=== PATIENT | female | born 1950 | race Caucasian/White ===

== ENCOUNTER 2025-08-09 14:40 | Emergency (ER) | payer OTHER, MEDICAID, SELFPAY ==
[2025-08-09 14:50] VITALS: PULSE 120; BMI 28.3
--- NOTE | 2025-08-09 15:05 | XR_ITS ---
Examination: CT maxillofacial, without intravenous contrast. 2-D sagittal reconstructions. 3-D reconstructions. Date and time of exam: August 09, 2025, 1603 hours INDICATIONS: Patient fell today with injury to the face, facial pain CTDI: vol (mGy): 19.9 DLP: (mGycm): 390 Technique: Multiple axial images of maxillofacial region, 3.0 mm slice thickness. 2-D sagittal and coronal reconstructions. 3-D reconstructions. Low dose protocols were performed. One or more of the following dose reduction techniques were used; automated exposure control, adjustment of the mA and/or KV according to patient size, use of iterative reconstruction technique. Findings: Frontal bones frontal sinuses intact Orbital rims intact Fractures anterior and lateral margins left maxillary antrum with depression of fracture fragments and blood in the left maxillary antrum Maxilla appears intact No acute nasal bone fractures Mandible intact IMPRESSION: Comminuted fractures with depressions anterior and lateral gates left maxillary antrum.
--- NOTE | 2025-08-09 15:05 | XR_ITS ---
Examination: CT cervical spine without contrast 2-D sagittal reconstructions 2-D coronal reconstructions 3-D reconstructions. Exam date and time: August 09, 2025, 1603 hours, comparison January 26, 2022 INDICATIONS: Patient fell today with injury to the neck, neck pain CTDI:vol (mGy) 12.2 DLP: (mGycm) 236 Technique: Multiple 2 mm axial sections of the cervical spine have been obtained. The coronal and sagittal reconstructions have been obtained. 3-D reconstructions have been obtained. Low dose protocols were performed. One or more of the following dose reduction techniques were used; automated exposure control, adjustment of the mA and/or KV according to patient size, use of iterative reconstruction technique. Findings: Axial sections demonstrate intact base of the skull. Again noted multiple focal areas of probable osteopenia in the cervical vertebral bodies without significant change C1 exhibit satisfactory relationship to the odontoid. No acute cervical vertebral body fracture seen. Alignment posterior spinous processes satisfactory. Impression: No acute cervical fracture.
--- NOTE | 2025-08-09 15:05 | XR_ITS ---
Examination: CT brain head without contrast. 2-D sagittal coronal reconstructions Date and time of exam: August 09, 2025, 1603 hours INDICATION: Patient fell today with injury to the head, head pain COMPARISON: January 25, 2022 CTDI: vol (mGy): 45.7 DLP: (mGycm): 897 Technique: Multiple CT axial sections of the brain have been obtained, 5 mm slice thickness. Contrast has not been administered. 2-D sagittal, coronal reconstructions have been obtained Low dose protocols were performed. One or more of the following dose reduction techniques were used; automated exposure control, adjustment of the mA and/or KV according to patient size, use of iterative reconstruction technique. Findings: No significant ventricular enlargement. Old left basal ganglia infarct Intra-axial or extra-axial hemorrhage density is not seen. No mass effect or midline shift Basal cisterns are not remarkable. Fourth ventricle is midline. Cranial vault intact. Soft tissue swelling anterior to the left optic globe Impression: Negative for acute hemorrhage, mass effect or midline shift Please see the CT maxillofacial study today
--- NOTE | 2025-08-09 15:07 | PD.EDFALL ---
ED Fall Injury RME/HPI General Chief Complaint: Fall Stated Complaint: FALL Time Seen by Provider: 08/09/25 14:59 Arrival date/time: 08/09/25 14:40 74-year-old female patient with significant history of hypertension, taking 81 mg of aspirin daily, came in for evaluation regarding facial injury. Patient sustained a trip and fall, mechanical fall hitting her left side of the face on the curb resulting into nosebleeding, facial swelling on the left. No abrasion noted. Patient denies any headache no neck pain patient was able to ambulate after the fall. No LOC no nausea no vomiting. Incident happened few minutes prior to ER visit. Related Data Previous Rx's ?Medication ?Instructions ?Recorded acetaminophen 325 mg tablet 650 mg (2 x 325 mg) PO Q6HR PRN 01/30/22 (Tylenol) Pain Scale 4-10(Mod-Sev #0 tabs amlodipine 5 mg tablet 10 mg (2 x 5 mg) PO QDAY #0 tabs 01/30/22 atenolol 25 mg tablet 25 mg PO QAM #0 tabs 01/30/22 atorvastatin 20 mg tablet 80 mg (4 x 20 mg) PO HS #0 tabs 01/30/22 clopidogrel 75 mg tablet 75 mg PO QDAY #0 tabs 01/30/22 lisinopril 20 mg tablet 40 mg (2 x 20 mg) PO QDAY #0 tabs 01/30/22 naproxen 250 mg tablet 250 mg PO Q8HR PRN Pain #0 tabs 01/30/22 acetaminophen 300 mg-codeine 30 mg 1 tab PO Q8H PRN pain #20 tabs 08/09/25 tablet amoxicillin 875 mg-potassium 1 tab PO BID #14 tabs 08/09/25 clavulanate 125 mg tablet Allergies Allergy/AdvReac Type Severity Reaction Status Date / Time enalaprilat (From Vasotec) Allergy Intermediate Vomiting Verified 08/09/25 14:49 venlafaxine (From Effexor) Allergy Intermediate Vomiting Verified 08/09/25 14:49 erythromycin base Allergy Vomiting Verified 08/09/25 14:49 Review of Systems Review of Systems Narrative Review of Systems: Review of system reviewed and within normal limits except mentioned in HPI ED Exam Narrative Physical exam: VITAL SIGNS: Reviewed. GENERAL APPEARANCE: Alert and interactive, follows commands, no acute distress, HEAD AND FACE: Swelling left side of the face, bruising no deformity to the nose periorbital hematoma noted no hyphema noted ENT: PERRL, pink conjunctivitis, eyelid no trauma, Mucous membrane moist. NECK: Supple, nontender, no nuchal rigidity. CHEST: No tenderness, no crepitus, no paradoxical movement, no retractions. LUNGS: Clear, well ventilated, symmetric, no rales, no wheezing, no ronchi, no stridor, good breath sounds bilaterally. HEART: Regular rate, regular rhythm, no murmur, no gallops. ABDOMEN: Soft, positive bowel sounds, nondistended, no guarding, nontender, no rebound, no masses, RECTAL: Deferred. GENITAL: Deferred. NEUROLOGICAL: Gross motor function intact sensory function intact, Appropriate for age. MUSCULOSKELETAL: low back nontender, full range of motion. EXTREMITIES: Nontender, full range of motion. SKIN: Color pink, dry, no rash, no lacerations, no abrasions, no contusions. LYMPHATICS: Deferred. Course Quality Measures none Orders Category Date Time Status Referral - Timber Estimator Stat Cons 08/09/25 17:[address] cervical spine wo con Stat Exams 08/09/25 15:[address] facial bones wo con Stat Exams 08/09/25 15:[address] head/brain wo con Stat Exams 08/09/25 15:05 Completed CBC [CBC] Stat Lab 08/09/25 15:42 Completed CMP [Comprehensive Metabolic Panel] Stat Lab 08/09/25 15:42 Completed PTT [Partial Thromboplastin Time] Stat Lab 08/09/25 15:42 Completed UA, C/S IF [Urinalysis, C/S if Indicated] Stat Lab 08/09/25 15:31 Completed Urine Culture Stat Lab 08/09/25 15:31 Received Acetaminophen Tab [Tylenol ES Tab] Med 08/09/25 15:05 Discontinued 1,000 mg PO X1 ONE Morphine* Inj Med 08/09/25 18:06 Discontinued 4 mg IVP X1 ONE Ondansetron Inj [Zofran Inj] Med 08/09/25 18:06 Discontinued 4 mg IVP X1 ONE Oxymetazoline [place] 0.05% [Afrin Nasal [place]] Med 08/09/25 17:42 Discontinued See Dose Instructions NASAL X1 ONE TET,DIP/PERT AC (Adult)-Tdap [Boostrix Adult (Tdap) Med 08/09/25 15:05 Discontinued Vacc] 0.5 ml IMI .ONCE ONE cephALEXin [Keflex] Med 08/09/25 16:31 Discontinued 500 mg PO X1 ONE cloNIDine HCL [Catapres] Med 08/09/25 17:12 Discontinued 0.2 mg PO X1 ONE Vital Signs Vital signs: Vital Signs Temperature 99.2 F 08/09/25 15:09 Pulse Rate 117 H 08/09/25 15:09 Respiratory Rate 18 08/09/25 15:09 Blood Pressure 144/117 H 08/09/25 15:09 Pulse Oximetry (%) 98 08/09/25 15:09 Oxygen Delivery Method Room Air 08/09/25 15:09 Fall MDM Narrative MDM Narrative:: 74-year-old female patient with significant history of hypertension, taking 81 mg of aspirin daily, came in for evaluation regarding facial injury. Patient sustained a trip and fall, mechanical fall hitting her left side of the face on the curb resulting into nosebleeding, facial swelling on the left. No abrasion noted. Patient denies any headache no neck pain patient was able to ambulate after the fall. No LOC no nausea no vomiting. Incident happened few minutes prior to ER visit. CT scan of the head came back unremarkable. CT scan of the neck came back unremarkable. CT scan of the face showed Comminuted fractures with depressions anterior and lateral gates left maxillary antrum. Patient was referred to [facility] for outpatient follow-up. Patient got accepted for outpatient follow-up in [facility] in [place]. Patient was given the address of the facility Patient stable for charged home Patient data External records reviewed:: None Clinical information provided by:: patient Social determinants that could affect healthcare access:: none Patient has the following chronic illnesses:: Hypertension How is presenting disease/condition affected by chronic disease/condition?: uneffected by Evaluation data The following diagnostics were reviewed and interpreted by me:: lab results and radiology exam(s) Lab and/or radiology exams considered but not ordered:: None Interpretation Summary: none Medications / Prescriptions Medications or Prescriptions considered but not ordered:: none Medication administrations:: Medication Administration History Discontinued Medications Acetaminophen (Acetaminophen 500 Mg Tablet) 1,000 mg PO X1 ONE Stop: 08/09/25 15:06 Last Admin: 08/09/25 16:19 Dose: 1,000 mg Documented By: JOSE ANTONIO Cephalexin HCl (Cephalexin 250 Mg Capsule) 500 mg PO X1 ONE Stop: 08/09/25 16:32 Last Admin: 08/09/25 17:19 Dose: 500 mg Documented By: MARIANNE Clonidine (Clonidine Hcl 0.1 Mg Tablet) 0.2 mg PO X1 ONE Stop: 08/09/25 17:13 Last Admin: 08/09/25 17:19 Dose: 0.2 mg Documented By: MARIANNE Diphtheria/Tetanus/Acell Pertussis (Diphth,Pertuss(Acell),Tet Vac 0.5 Ml Syr- Adult) 0.5 ml IMi .ONCE ONE Stop: 08/09/25 15:06 Last Admin: 08/09/25 17:19 Dose: 0.5 ml Documented By: MARIANNE Morphine Sulfate (Morphine Sulf Inj 4 Mg/Ml Vial) 4 mg IVP X1 ONE Stop: 08/09/25 18:07 Last Admin: 08/09/25 18:19 Dose: 4 mg Documented By: JOSE ANTONIO Ondansetron HCl (Ondansetron Inj 2 Mg/Ml Inj 2 Ml) 4 mg IVP X1 ONE; Protocol Stop: 08/09/25 18:07 Last Admin: 08/09/25 18:20 Dose: 4 mg Documented By: JOSE ANTONIO Oxymetazoline HCl (Oxymetazoline [place] 0.05% 15 Ml Btl) 0 spray NASAL X1 ONE Stop: 08/09/25 17:43 Last Admin: 08/09/25 18:18 Dose: 2 spray Documented By: JOSE ANTONIO Comments: unable to scan barcode see above Consultations Consultation(s) initiated? (list below): Yes Diagnosis Fall Differential Diagnosis: syncope and other (Facial contusion, fall, maxillary bone fracture) Most likely diagnosis given after review of the tests above:: Facial hematoma, fall, maxillary bone fracture Admission Indicated Admission indicated?: not indicated Admission Request Was there a request for admission?: No Disposition Plan Disposition Plan: Discharge Discharge Attestation Discharge Attestation: The patient was given an opportunity to ask questions and understood the discharge instructions. Discharge instructions specifically effects, indications for sooner follow up or return to the emergency department, and the expected course of current diagnosis. Patient condition: Stable Discharge Plan Plan Patient Disposition: HOME (Self Care) Discharge Disposition comment: Stable Prescriptions/Referrals Prescriptions/Med Rec: New amoxicillin-pot clavulanate 875-125 mg tablet 1 tab PO BID Qty: 14 0RF acetaminophen-codeine 300-30 mg tablet 1 tab PO Q8H PRN (Reason: pain) Qty: 20 0RF No Action acetaminophen [Tylenol] 325 mg Tablet 650 mg PO Q6HR PRN (Reason: Pain Scale 4-10(Mod-Sev) Qty: 0 0RF atorvastatin 20 mg Tablet 80 mg PO HS Qty: 0 0RF lisinopril 20 mg Tablet 40 mg PO QDAY Qty: 0 0RF atenolol 25 mg Tablet 25 mg PO QAM Qty: 0 0RF naproxen 250 mg Tablet 250 mg PO Q8HR PRN (Reason: Pain) Qty: 0 0RF clopidogrel 75 mg Tablet 75 mg PO QDAY Qty: 0 0RF amlodipine 5 mg Tablet 10 mg PO QDAY Qty: 0 0RF Referrals: Ajay Acharya MD [Primary Care Provider, Family Practice] - In 1 week Problem List Clinical Impression: Fall, Facial hematoma, Closed fracture of maxillary bone, UTI (urinary tract infection) Patient/Caregiver Discharge Instructions Discharge Activity: activity as tolerated Education Materials: Bruises (Contusions) Additional Instructions: Thank you for the opportunity for serving you today. You are stable for discharged . You are advised to: Follow-up with [facility] ENT/OMFS next week, the facility will call you for the exact date of the appointment please answer your phone Return to ED for worsening of symptoms Increase oral fluids Take medication as prescribed Print Language: Indonesian Stand Alone Forms: Angeline Award Info., Patient Portal Info Letter EH/RONALD Supervising Physician EH/RONALD Supervising Physician: MD Napoleon
[2025-08-09 15:09] VITALS: BP 144/117; PULSE 117; RESP 18; TEMP 37.3; O2SAT 98
[2025-08-09 15:36] LABS: Collection Type, Urine Clean Catch
[2025-08-09 15:53] LABS: Basophils # (Auto) 0.1 Thou/mm3 (0.0-0.2); Basophils % (Auto) 1 % (0-2.5); Eosinophils # (Auto) 0.1 Thou/mm3 (0.0-0.5); Eosinophils % (Auto) 1 % (0-10); Hematocrit 37.5 % (36.0-46.0); Hemoglobin 12.1 g/dL (12.0-16.0); Immature Granulocytes Auto 0.04 Thou/mm3 (0.00-0.00); Lymphocytes # (Auto) 1.9 Thou/mm3 (1.0-4.8); Lymphocytes % (Auto) 18 % (10-50); Mean Corpuscular HGB Conc 32.3 g/dl (31.0-37.0); Mean Corpuscular Hemoglobin 26.9 pg (25.0-35.0); Mean Corpuscular Volume 83 fL (80-100); Monocytes # (Auto) 0.7 Thou/mm3 (0.0-0.8); Monocytes % (Auto) 6 % (0-12); Neutrophils # (Auto) 8.0 Thou/mm3 (1.8-7.7); Neutrophils % (Auto) 74 % (37-80); Nucleated Red Blood Cell # 0.00 Thou/mm3 (0.00-0.00); Nucleated Red Blood Cell % 0 /100 WBC (0); Platelet Count 396 Thou/mm3 (140-440); RDW Standard Deviation 40.9 fL (36.4-46.3); Red Blood Count 4.50 Miln/mm3 (4.00-5.20); White Blood Count 10.8 Thou/mm3 (3.6-11.0)
[2025-08-09 15:58] LABS: Bacteria,Urine Rare; Bilirubin,Urine Negative (Negative); Blood,Urine Negative (Negative); Color,Urine Lt-Yellow (Lt Yel-Yel); Glucose, Urine Negative (Negative); Ketones,Urine Negative (Negative); Leukocyte Esterase,Urine Positive (Negative); Nitrite,Urine Negative (Negative); PH,Urine 7.0 (5.0-7.0); Protein,Urine Negative (Neg - Trace); RBC,Urine 4 /hpf (0-3); Specific Gravity,Urine 1.015 (1.001-1.035); Squamous Epithelial Cell,Urine 1 /hpf (0-5); Urobilinogen,Urine Negative mg/dL (0.0-1.0); WBC,Urine 60 /hpf (0-5)
[2025-08-09 16:06] LABS: Partial Thromboplastin Time 28.7 Seconds (22.0-36.0)
[2025-08-09 16:10] LABS: Clarity,Urine Hazy (Clear/Hazy); Culture Indicated,Urine Yes
[2025-08-09 16:15] LABS: Alanine Aminotransferase 20 U/L (10-49); Albumin, Serum 5.3 gm/dL (3.4-4.8); Albumin/Globulin Ratio 1.9 (1.2-2.2); Alkaline Phosphatase 54 U/L (46-116); Anion Gap 11 (7-16); Aspartate Amino Transferase 35 U/L (0-34); BUN/Creatinine Ratio 21 Ratio (12-20); Bilirubin,Total 0.3 mg/dL (0.3-1.2); Blood Urea Nitrogen 17 mg/dL (9-23); Calcium 10.7 mg/dL (8.3-10.6); Calcium (Corrected) 10.7 mg/dL (8.5-10.1); Carbon Dioxide 26.9 mMol/L (20.0-31.0); Chloride 98 mMol/L (98-107); Creatinine (Component) 0.8 mg/dL (0.6-1.3); Estimated Creatinine Clearance 55.8 mL/min (>60); Globulin 2.8 gm/dL (2.3-3.5); Glucose 138 mg/dL (74-106); Osmolality,Calculated 275 (275-295); Potassium 3.6 mMol/L (3.4-5.1); Sodium 136 mMol/L (136-145); Total Protein 8.1 gm/dL (5.7-8.2); eGFR > 60 See Note
[2025-08-09] MEDS: ACETAMINOPHEN 500 MG TABLET 1000 MG PO (16:19)
[2025-08-09 16:51] VITALS: BP 217/121; PULSE 119; RESP 20; TEMP 37.1; O2SAT 95
[2025-08-09 17:19] VITALS: BP 203/117; PULSE 117
[2025-08-09] MEDS: DIPHTH,PERTUSS(ACELL),TET VAC 0.5 ML SYR- ADULT IMi (17:19)
[2025-08-09] MEDS: OXYMETAZOLINE NAS SPRY 0.05% 15 ML BTL NASAL (18:18)
[2025-08-09] MEDS: MORPHINE SULF INJ 4 MG/ML VIAL IVP (18:19)
[2025-08-09] MEDS: ONDANSETRON INJ 2 MG/ML INJ 2 ML 4 MG IVP (18:20)
--- NOTE | 2025-08-09 18:22 | PC.CC ---
Addendum entered by Valeriy Hudson RN 08/09/25 19:25: 1924: called [facility] TC, left with our ED contact information. Addendum entered by Valeriy Hudson RN 08/09/25 19:24: 1922: Spoke to [facility] w/ [facility], provided our ED contact information. 1914: transfer packet w/ 1 CD created. Packet and hand off report given to ED CN Billy. Addendum entered by Valeriy Hudson RN 08/09/25 18:45: 184: called [facility], spoke to [facility]. he stated to send clinicals and he'll review and call back. Clinicals sent to [facility]. 1838: called TC, spoke to [facility], no OMFS service. She stated they reach out to [facility] or [facility]. 1836: called [facility] TC back, spoke to Ashley to initiate transfer. She stated she will review but to reach out to other facilities. Original Note: 1819: called [facility] TC, left 1816: gathered clinicals and images, sent to [facility]. 1744: Received call from Stewart to inform me he enter a transfer order but its not a transfer. It is for outpatient.
[2025-08-09 18:36] VITALS: BP 168/101; PULSE 113; RESP 13; TEMP 37.2; O2SAT 95
[2025-08-09 20:00] VITALS: BP 134/84; PULSE 88; RESP 20; TEMP 36.6; O2SAT 96
== END 2025-08-09 21:42 | disposition home or self-care (01) ==
PROVIDERS: Nurse Practitioner Family; Emergency Provider Family Medicine; PCP Family Medicine
DX: S02.40DA Maxillary fracture, left side, initial encounter for closed fracture (principal); S00.83XA Contusion of other part of head, initial encounter; S19.9XXA Unspecified injury of neck, initial encounter; N39.0 Urinary tract infection, site not specified; Z23 Encounter for immunization
CPT/HCPCS: 36415; 70450; 70486; 72125; 80053; 81001; 85025; 85730; 87086; 90471; 90715; 96374; 96375; 99284; J2270; J2405; A9270